=== PATIENT | female | born 1990 | race Caucasian/White ===

== ENCOUNTER 2024-08-06 08:45 | Emergency (ER) | payer OTHER, SELFPAY ==
--- OUTSIDE RECORDS SUMMARY | 2024-08-06 08:46 | XMS_ITS | Clinical Summary ---
Author Organization [employer] [facility] Address [place], [place] [address] Care Team Providers Care Senior Business Development Manager Name Role Phone Pcp, No Primary Care Provider Unavailabl e Allergies Active Allergy Reactions Criticality Noted Date Comments Peanut Anaphylaxis High 06/24/2015 Medications EPINEPHrine (EPIPEN) 0.3 mg/0.3 mL (1:1,000) injectionIndic ations:Anaphyl axis, initial encounter Inject 0.3 mg intramuscular one time if needed for Allergic Reaction for up to 1 dose. 2 Each 0 5 Active Social History Tobacco Use Types Packs/Day Years Used Date Smoking Tobacco: Never Assessed Comments Unknown Sex and Gender Information Value Date Recorded Sex Assigned at Not on file Legal Sex Female 1:38 PM BABY STROLLER RENTAL CLERK Gender Identity Not on file Sexual Orientation Not on file Last Filed Vital Signs Vital Sign Reading Time Taken Comments Blood Pressure 118/77 06/25/2015 1:16 AM BABY STROLLER RENTAL CLERK Pulse 69 06/25/2015 1:16 AM BABY STROLLER RENTAL CLERK Temperature 36.4 C (97.6 F) 06/24/2015 10:58 PM BABY STROLLER RENTAL CLERK Respiratory Rate 16 06/25/2015 1:16 AM BABY STROLLER RENTAL CLERK Oxygen Saturation 100% 06/25/2015 1:16 AM BABY STROLLER RENTAL CLERK Inhaled Oxygen Concentration - - Weight 59.9 kg (132 lb) 06/24/2015 10:58 PM BABY STROLLER RENTAL CLERK Height 165.1 cm (5' 5) 06/24/2015 10:58 PM BABY STROLLER RENTAL CLERK Body Mass Index 21.97 06/24/2015 10:58 PM BABY STROLLER RENTAL CLERK Plan of Treatment Not on file Insurance [facility] Care Teams Senior Business Development Manager Relationship Specialty Start Date End Date Pcp, No . PCP - General 06/24/15
--- OUTSIDE RECORDS SUMMARY | 2024-08-06 08:46 | XMS_ITS | Clinical Summary ---
Author Organization [facility] Address [address] [place] [address] Care Team Providers Care Perpetual Inventory Clerk Name Role Phone Asuncion Monteiro MD Primary Care Provider [phone] Source Comments You are receiving this document as you are listed as the primary care provider,follow-up provider, or the patient has been referred to you for consultation.This is in compliance with the Medicare andMedicaid EHR Incentive Program,which states Providers who transition their patient to another setting of careor provider of care or refers their patient to another provider of care shouldprovide summary care record for each transition of care or referral. [facility] Allergies No known active allergies Medications Medication Sig Dispensed Refills Start Date End Date Status Vit-Fe Fumarate-FA ( OR) Active promethazine (PHENERGAN) 25 MG tablet Take 1 Tab by mouth every 6 hours as needed for Nausea. 30 Tab 1 06/26/2016 Active Additional Information Patient not taking.Reported on 08/27/2016 Active Problems Patient Care Coordination No te Formatting of this note migh t be different from the original. First Tri. Screen Problem Noted Date Diagnosed Date Supervision of other normal , antepartu m 05/08/2016 Overview (05/08/2016): Hus: diana Medrano 1.5yo SEx: plan: possible WB Anxiety 05/08/2016 Immunizations Name Administration Dates Next Due Influenza IIV4 (Quadrivalent) 0.5mL (43360) 04/27 Family History Medical History Relation Name Comments High Cholesterol Father Depression Mother High Cholesterol Mother Hypertension Mother Thyroid Disorder Mother Cancer, Colon Maternal Grandfather Alzheimer's Maternal Grandmother Cancer Maternal Grandmother Cancer, Kidney Maternal Grandmother Heart Disease Maternal Grandmother A-fib Stroke Paternal Grandfather Relation Name Status Comments Father Alive Mother Alive Brother Alive Maternal Grandfather Maternal Grandmother Alive Paternal Grandfather Paternal Grandmother Alive Social History Tobacco Use Types Packs/Day Years Used Date Smoking Tobacco: Former Comments:Social smoker in 18 ' Alcohol Use Standard Drinks/Week Comments Yes 0 (1 standard drink = 0.6 oz pure alcohol) 3-4-per month but not while Sex and Gender Information Value Date Recorded Sex Assigned at Not on file Gender Identity Not on file Sexual Orientation Not on file Last Filed Vital Signs Vital Sign Reading Time Taken Comments Blood Pressure 108/60 08/27/2016 3:53 PM PATTERN CUTTER Pulse 98 05/08/2016 11:01 AM CDT Temperature - - Respiratory Rate - - Oxygen Saturation - - Inhaled Oxygen Concentration - - Weight 71.2 kg (156 lb 14.4 oz) 08/27/2016 3:53 PM PATTERN CUTTER Height 167 cm (5' 5.75) 05/08/2016 11: 01 AM CDT Body Mass Index 25.52 05/08/2016 11:01 AM CDT Plan of Treatment Health Maintenance Due Date Last Done Comments Adult Preventive Visit 2006 DTaP/Tdap/Td (1 - Tdap) 2007 HepB (1) 2007 Cervical Cancer Screening 05/08/2019 05/08/2016 COVID-19 Vaccine ( - 2023-2 5 season) 2024 Influenza (#1) 2024 05/08/2016 Zoster/Shingles (1 of 2) 2038 HIV Screening (Preventive Services) Completed 05/08/2016 Hep C Screening (Preventive Services) Completed 05/08/2016 HPV Vaccine Aged Out No longer eligi ble based on patient's age to complete this topic HepA Aged Out No longer eligi ble based on patient's age to complete this topic Hib Aged Out No longer eligi ble based on patient's age to complete this topic IPV (Polio) Aged Out No longer eligi ble based on patient's age to complete this topic MCV4 Aged Out No longer eligi ble based on patient's age to complete this topic Pneumococcal Aged Out No longer eligi ble based on patient's age to complete this topic Procedures Procedure Name Priority Date/Time Associated Diagnosis Comments ANATOMICAL PATH LIQUID BASED Routine 05/08/2016 1:24 PM CDT HIV-1 P24 AND HIV-1/HIV-2 ANTIBODIES Routine 05/08/2016 12:31 PM CDT Screening examination for venereal disease HEPATITIS C ANTIBODY, WITH REFLEX Routine 05/08/2016 12:31 PM CDT Special screening examination for viral disease from Last 3 Months or Most Recently Relevant to Health Maintenance Results * Pap Smear (05/08/2016 1:24 PM CDT) 05/08/2016 1:24 PM CDT Narrative JACK GAMBINO - 05/10/2016 8:37 AM CDT FINAL GYNECOLOGICAL CYTOLOGY REPORT Pathology #: [id number] Date Obtained: 05/08/2016 Date Received: 05/09/2016 INTERPRETATION/RESULTS: Negative for Intraepithelial Lesion or Malignancy. SPECIMEN ADEQUACY: Satisfactory for Evaluation. Endocervical cells/transformation zone component present. Verified on 05/10/2016 by TROY WOODRUFF(ASCP) (electronic signature) CLINICAL NOTES: Abnormal bleeding: No, LMP: 03/07/16, Menstrual status: , Current form of therapy: None apply LIQUID BASED PAP SMEAR SPECIMEN TYPE: ROUTINE CERVICAL PAP TEST PLEASE NOTE: The pap smear is a screening test designed to aid in the detection of cervical cancer and its precursor lesions. It is not a diagnostic procedure and should not be used as the sole means of detecting cervical cancer. Both false-positive and false-negative reports may occur. Performed at [facility], [facility] [place] [address] Tasha Smith APRN, CNM LAB_1 [facility] [address] [place] [address] * LAB HIV-1 p24 AND HIV-1/HIV-2 ANTIBODIES (05/08/2016 12:31 PM CDT) HIV-1 p24 Ag and HIV-1/HIV-2 Ab Nonreactive Nonreactive PN SOFT 05/08/2016 12:3 1 PM CDT 05/08/2016 7:05 PM CDT Narrative PN SOFT - 05/08/2016 7:52 PM CDT Performed at [facility], [address] [place] [address] CLIA number [id number] Tasha Smith APRN, CNM LAB_1 Performing Organization Address [facility] Co de Phone Number PN SOFT [address] [place] [address] * HEPATITIS C ANTIBODY, WITH REFLEX (05/08/2016 12:31 PM CDT) Hepatitis C Antibody Nonreactive Nonreactive PN SOFT 05/08/2016 12:3 1 PM CDT 05/08/2016 7:05 PM CDT Narrative PN SOFT - 05/08/2016 7:52 PM CDT Performed at [facility], [address] [place] [address] CLIA number [id number] Tasha Smith APRN, CNM LAB_1 Performing Organization Address [facility] Co de Phone Number PN SOFT [address] [place] [address] from Last 3 Months or Most Recently Relevant to Health Maintenance Care Teams Perpetual Inventory Clerk Relationship Specialty Start Date End Date Asuncion Monteiro MD [address] [place] [address] PCP - General 04/23/16
--- OUTSIDE RECORDS SUMMARY | 2024-08-06 08:46 | XMS_ITS | Encounter Summary ---
Author Organization [facility] Address [address] [place] [address] Care Team Providers Care Multilith Operator Name Role Phone Asuncion Monteiro MD Primary Care Provider [phone] Encounter Details Date Type Department Care Team (Late st Contact Info) Description 12/26/2021 Lab Requisition [place] [address] Dermatology [address] [place] [address] Colin Le PA-C [address] [place] [address] [address] [place], [place] [id number] Neoplasm of unspecified behavior of bone, soft tissue, and skin Social History Tobacco Use Types Packs/Day Years Used Date Smoking Tobacco: Former Comments:Social smoker in 18 's Alcohol Use Standard Drinks/Week Comments Yes 0 (1 standard drink = 0.6 oz pure alcohol) 3-4-per month but not while Sex and Gender Information Value Date Recorded Sex Assigned at Not on file Gender Identity Not on file Sexual Orientation Not on file documented as of this encounter Plan of Treatment Not on file documented as of this encounter Procedures Procedure Name Priority Date/Time Associated Diagnosis Comments SURGICAL PATHOLOGY, DERMATOLOGY Routine 12/25/2021 9:00 AM CDT Neoplasm of unspecified behavior of bone, soft tissue, and skin (HRC) documented in this encounter Results * Surgical Path, Dermatology (12/25/2021 9:00 AM CDT) Case Report Surgical Pathology Report Case: [id number] Authorizing Provider: Colin Le PA-C Collected: 12/25/2021 0900 Ordering Location: [place] [address] Received: 12/26/2021 1348 Dermatology Pathologist: Christian Lee MD Specimen: Skin shave, Breast left, lower 01/01/2022 12:31 PM T [facility] 3800 DERMATOLOGY FINAL DIAGNOSIS A. 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 01/01/2022 12:31 PM T [facility] 3800 DERMATOLOGY Clinical Information 6 mm skin-colored papule. Rule out atypia. 01/01/2022 12:31 PM T [facility] 3800 DERMATOLOGY Microscopic Description Microscopic examination is performed. 01/01/2022 12:31 PM T [facility] 3800 DERMATOLOGY Special Stains A portion of the technical [place] [address]. The professional interpretation was performed at [facility]. 01/01/2022 12:31 PM T [facility] 3800 DERMATOLOGY Gross Description A: Received in formalin, labeled with the patient's name and Skin shave, Breast left, lower is a 9 x 6 x 3 mm shave biopsy of skin. The specimen is marked with black ink, bisected, and submitted entirely in one cassette. CC 01/01/2022 12:31 PM T [facility] 3800 DERMATOLOGY Embedded Images 01/01/2022 12:31 PM T [facility] 3800 DERMATOLOGY Skin SHAVE BIOPSY OF SKIN / Unknown 12/25/2021 9:00 AM CDT 12/26/2021 1:48 PM CDT Colin Le PA-C LAB PATHOLOGY [facility] [address] documented in this encounter Visit Diagnoses Diagnosis Neoplasm of unspecified behavior of bone, soft tissue, and skin (HRC) documented in this encounter Care Teams Multilith Operator Relationship Specialty Start Date End Date Asuncion Monteiro MD [address] [place] [address] PCP - General 04/23/16 documented as of this encounter
--- OUTSIDE RECORDS SUMMARY | 2024-08-06 08:47 | XMS_ITS | Clinical Summary ---
Author Organization [facility] Address [address] [place] [address] Care Team Providers Care Chief Medical Director Name Role Phone Elsewhere, Pcp Primary Care Provider Unavailabl e Source Comments Patient records contain information from all sites at [facility]. For routine questions regarding patient records, call [phone] during business hours, M-F 8:00 AM - 5:00 PM Central Time. Record requests for emergency care only can be directed to [phone] at any time.[facility] Allergies No known active allergies Medications acetaminophen (TylenoL) 500 mg tablet Take 1,000 mg by mouth every 6 (six) hours as needed for pain or fever. Active ibuprofen 200 mg tablet Take 400 mg by mouth every 6 (six) hours as needed for pain or fever. Active benzonatate (Tessalon Perles) 100 mg capsule Take 1 capsule (100 mg total) by mouth 3 (three) times a day as needed for cough. 20 capsule 08/03/2024 Active predniSONE (Deltasone) 20 mg tablet Take 1 tablet (20 mg total) by mouth 2 (two) times a day for 5 days. 10 tablet 08/03/2024 5 Active Active Problems No known active problems Encounters Date Type Department Care Team Description 08/03/2024 11:35 AM SALES ASSISTANTS AND SALESPERSONS - 08/03/2024 12:46 PM [facility] Emergency [place] Emergency/Urgent Care Department [address] [place] [address] [phone] Monalisa Hand P.A.-C., P.A. Cough Acute (Primary Dx) Discharge Disposition: Home or Self Care from Last 3 Months Immunizations Name Administration Dates Next Due Tdap 06/03/2014 Social History Tobacco Use Types Packs/Day Years Used Date Smoking Tobacco: Never Dental Answer Date Recorded Dental: Regular Dentist Unknown 08/03/19 Comments No Sex and Gender Information Value Date Recorded Sex Assigned at Not on file Legal Sex Female 7:49 PM SALES ASSIST[employer]S AND SALESPERSONS Gender Identity Not on file Sexual Orientation Not on file Last Filed Vital Signs Vital Sign Reading Time Taken Comments Blood Pressure 119/80 08/03/2024 11:28 AM [employer] Pulse 116 08/03/2024 11:28 AM [employer] Temperature 39.4 C (102.9 F) 08/03/2024 11:28 AM [employer] Respiratory Rate 20 08/03/2024 11:2 8 AM [employer] Oxygen Saturation 100% 08/03/2024 11: 28 AM [employer] Inhaled Oxygen Concentration - - Weight 63.4 kg (139 lb 12.8 oz) 025 11:29 AM [employer]IST[employer]S [employer] SAL[employer] Height 167 cm (5' 5.75) 07/12/2015 9:26 AM [employer] Body Mass Index 22.74 07/12/2015 9:26 AM [employer] Plan of Treatment Health Maintenance Due Date Last Done Comments Cervical/Vaginal Cancer Screening 1988 HIV Screening 1988 Hepatitis C Screening 1988 Lipid (Cholesterol) Screening 1988 Hepatitis B Vaccines (1 of 3 - 19+ 3-dose series) 2007 COVID-19 Vaccine ( - 2023-2 5 season) 2024 Influenza Vaccine (#1) 2024 05/08/2016 DTaP,Tdap,and Td Vaccines (2 - Td or Tdap) 06/03/2024 06/03/2014 Depression Screening (Annual PHQ-2) 07/28/2024 HPV Vaccines Aged Out No longer eligi ble based on patient's age to complete this topic IPV Vaccines Aged Out No longer eligi ble based on patient's age to complete this topic Pneumococcal vaccine (0-49 years) Aged Out No longer eligible based on patient's age to complete this topic Procedures Procedure Name Priority Date/Time Associated Diagnosis Comments INFLUENZA A, B, RSV, PCR, POCT STAT 08/03/2024 11:41 AM [employer] SARS CORONAVIRUS 2, PCR RAPID, V STAT 08/03/2024 11:41 AM [employer] from Last 3 Months Results * SARS Coronavirus 2, PCR Rapid Symptomatic (08/03/2024 11:41 AM [employer]) SARS CoV-2, PCR, Rapid, V Undetected Undetected 08/03/2024 11:45 AM [employer] NPRG SARS Coronavirus 2, Source, Rapid Swab, Nasopharynx 08/03/2024 11:41 AM [employer] NPRG Swab (Nasopharynx) 08/03/2024 11:41 AM [employer] 08/03/2024 11:41 AM [employer] Monalisa GrayC., P.A. LAB MICROBIOLOGY - G ENERAL ORDERABLES Final Result Performing Organization Address City/[facility]/ZIP Co de Phone Number [facility] [address] [place] [address], [facility] NPRG [place] [phone] * Influenza A/B and RSV, PCR, Point of Care (08/03/2024 11:41 AM [employer]S [employer] SAL[employer]) Influenza A, POCT Negative Negative 08/03/2024 11:47 AM [employer] NPRG Influenza B, POCT Negative Negative 08/03/2024 11:47 AM [employer] NPRG Resp Syncytial Virus, POCT Negative Negative 08/03/2024 11:47 AM [employer] NPRG Swab (Nasopharynx) 08/03/2024 11:41 AM [employer] 08/03/2024 11:41 AM [employer] Monalisa Freeman.-C., P.A. LAB POCT ORDERABLES - DEVICE Final Result Performing Organization Address City/[facility]/ZIP Co de Phone Number [facility] [address] [place] [address], [facility] NPRG [address] [address] from Last 3 Months Insurance [employer] Care Teams Chief Medical Director Relationship Specialty Start Date End Date Elsewhere, Pcp PCP - General Family Medicine 06/01/18
--- OUTSIDE RECORDS SUMMARY | 2024-08-06 08:47 | XMS_ITS | Referral Summary ---
Author Organization [facility] Address [address] [place] [address] Care Team Providers Care Plasterer Apprentice Name Role Phone Elsewhere, Pcp Primary Care Provider Unavailabl e Source Comments Patient records contain information from all sites at [facility]. For routine questions regarding patient records, call [phone] during business hours, M-F 8:00 AM - 5:00 PM Central Time. Record requests for emergency care only can be directed to [phone] at any time.[facility] Encounters Date Type Department Care Team Description 08/03/2024 11:35 AM E COMMERCE ARCHITECT - 08/03/2024 12:46 PM [facility] Emergency [place] Emergency/Urgent Care Department [address] [place] [phone] Monalisa Hand P.A.-C., P.A. Cough Acute (Primary Dx) Discharge Disposition: Home or Self Care from Last 3 Months Allergies No known active allergies Medications acetaminophen [...] day for 5 days. 10 tablet 08/03/2024 Active Active Problems No known active problems Immunizations Name Administration Dates Next Due Tdap 06/03/2014 Social History Tobacco Use Types Packs/Day Years Used Date Smoking Tobacco: Never Dental Answer Date Recorded Dental: Regular Dentist Unknown 08/03/19 25 Comments No Sex and Gender Information Value Date Recorded Sex Assigned at Not on file Legal Sex Female 7:49 PM E COMMERCE ARCHITECT Gender Identity Not on file Sexual Orientation Not on file Last Filed Vital Signs Vital Sign Reading Time Taken Comments Blood Pressure 119/80 08/03/2024 11:28 AM E COMMERCE ARCHITECT Pulse 116 08/03/2024 11:28 AM E COMMERCE ARCHITECT Temperature 39.4 C (102.9 F) 08/03/2024 11:28 AM E COMMERCE ARCHITECT Respiratory Rate 20 08/03/2024 11:2 8 AM E COMMERCE ARCHITECT Oxygen Saturation 100% 08/03/2024 11: 28 AM E COMMERCE ARCHITECT Inhaled Oxygen Concentration - - Weight 63.4 kg (139 lb 12.8 oz) 025 11:29 AM E COMMERCE ARCHITECT Height 167 cm (5' 5.75) 07/12/2015 9:26 AM E COMMERCE ARCHITECT Body Mass Index 22.74 07/12/2015 9:26 AM E COMMERCE ARCHITECT Plan of Treatment Not on file Procedures Procedure Name Priority Date/Time Associated Diagnosis Comments INFLUENZA A, B, RSV, PCR, POCT STAT 08/03/2024 11:41 AM E COMMERCE ARCHITECT SARS CORONAVIRUS 2, PCR RAPID, V STAT 08/03/2024 11:41 AM E COMMERCE ARCHITECT from Last 3 Months Results * SARS Coronavirus 2, PCR Rapid Symptomatic (08/03/2024 11:41 AM E COMMERCE ARCHITECT) SARS CoV-2, PCR, Rapid, V Undetected Undetected 08/03/2024 11:45 AM E COMMERCE ARCHITECT NPRG SARS Coronavirus 2, Source, Rapid Swab, Nasopharynx 08/03/2024 11:41 AM E COMMERCE ARCHITECT NPRG Swab (Nasopharynx) 08/03/2024 11:41 AM E COMMERCE ARCHITECT 08/03/2024 11:41 AM E COMMERCE ARCHITECT us Monalisa Hand P.A.-C., P.A. LAB MICROBIOLOGY - G ENERAL ORDERABLES Final Result [facility] [address] [place] [address], [place] NPR[facility] [place] [address] [address] [place] [address] * Influenza A/B and RSV, PCR, Point of Care (08/03/2024 11:41 AM E COMMERCE ARCHITECT) Influenza A, POCT Negative Negative 08/03/2024 11:47 AM E COMMERCE ARCHITECT NPRG Influenza B, POCT Negative Negative 08/03/2024 11:47 AM E COMMERCE ARCHITECT NPRG Resp Syncytial Virus, POCT Negative Negative 08/03/2024 11:47 AM E COMMERCE ARCHITECT NPRG Swab (Nasopharynx) 08/03/2024 11:41 AM E COMMERCE ARCHITECT 08/03/2024 11:41 AM E COMMERCE ARCHITECT Monalisa Hand P.A.-C., P.A. LAB POCT ORDERABLES - DEVICE Final Result Performing Organization Address City/State/[facility] Co de Phone Number [facility] [address] [place] [address], [place] [address] [address] [place] [address] from Last 3 Months Insurance [employer] Care Teams Plasterer Apprentice Relationship Specialty Start Date End Date Elsewhere, Pcp PCP - General Family Medicine 06/01/18
--- OUTSIDE RECORDS SUMMARY | 2024-08-06 08:47 | XMS_ITS | Encounter Summary ---
Author Organization [facility] Address [address] [place] [address] Care Team Providers Care Director For Beauty [employer] Name Role Phone Elsewhere, Pcp Primary Care Provider Unavailabl e Reason for Visit * Reason Comments Fever Patient presents wit h fevers, cough and full body soreness that started Friday. Encounter Details Date Type Department Care Team ([facility] st Contact Info) Description 08/03/2024 11:35 AM OVEN HEATER HELPER - 08/03/2024 12:46 PM OVEN HEATER HELPER Emergency [place] [facility] [address] [place] [phone] Monalisa Hand P.A.-Samanta., P.A. [address] [place] [address] [phone] Cough Acute (Primary Dx) Discharge Disposition: Home or Self Care Social History Tobacco Use Types Packs/Day Years Used Date Smoking Tobacco: Never Dental Answer Date Recorded Dental: Regular Dentist Unknown 08/03/19 25 Comments No Sex and Gender Information Value Date Recorded Sex Assigned at Not on file Legal Sex Female 7:49 PM OVEN HEATER HELPER Gender Identity Not on file Sexual Orientation Not on file documented as of this encounter Last Filed Vital Signs Vital Sign Reading Time Taken Comments Blood Pressure 119/80 08/03/2024 11:28 AM OVEN HEATER HELPER Pulse 116 08/03/2024 11:28 AM OVEN HEATER HELPER Temperature 39.4 C (102.9 F) 08/03/2024 11:28 AM OVEN HEATER HELPER Respiratory Rate 20 08/03/2024 11:2 8 AM OVEN HEATER HELPER Oxygen Saturation 100% 08/03/2024 11: 28 AM OVEN HEATER HELPER Inhaled Oxygen Concentration - - Weight 63.4 kg (139 lb 12.8 oz) 025 11:29 AM OVEN HEATER HELPER Height - - Body Mass Index 22.74 07/12/2015 9:26 AM OVEN HEATER HELPER documented in this encounter Medications at Time of Discharge acetaminophen (TylenoL) 500 mg tablet Take 1,000 mg by mouth every 6 (six) hours as needed for pain or fever. ibuprofen 200 mg tablet Take 400 mg by mouth every 6 (six) hours as needed for pain or fever. benzonatate (Tessalon Perles) 100 mg capsule Take 1 capsule (100 mg total) by mouth 3 (three) times a day as needed for cough. 20 capsule 08/03/2024 predniSONE (Deltasone) 20 mg tablet Take 1 tablet (20 mg total) by mouth 2 (two) times a day for 5 days. 10 tablet 08/03/2024 08/08/2024 documented as of this encounter Progress Notes * Monalisa Hand P.A.-Samanta., P.A. - 08/03/2024 12:22 PM CST SUBJECTIVE CHIEF COMPLAINT / REASON FOR VISIT Fever (Patient presents with fevers, cough and full body soreness that started Friday. ) HISTORY OF PRESENT ILLNESS Ashley Salomon is a 34 y.o. female who presents for evaluation of symptoms cough and fever. Pt had onset of symptoms four days ago of fever ranging from 101-104 F. Has been using ibuprofen to help reduce fever. Non productive cough began three days ago. Having pain to back and chest when cough, frequent coughing, body aches, chills, sweats and fatigue. Her child was recently ill around dajuan time with similar symptoms. No other known exposures or ill contacts. No history of asthma or COPD. The patient's social and medical history was reviewed in the electronic medical record. ALLERGIES/CONTRAINDICATIONS No Known Allergies OBJECTIVE VITAL SIGNS BP 119/80 (BP Location: Left arm;Upper, Patient Position: Sitting) Pulse (!) 116 Temp (!) 39.4 ??C (Temporal) Resp 20 Wt 63.4 kg LMP 07/30/2024 SpO2 100% No BMI 22.74 kg/m?? PHYSICAL EXAMINATION General: Patient is alert and in no acute distress. HEENT: Pupils PERRLA. Conjunctivae clear without hemorrhages or exudates. Auditory canals normal without erythema or edema. TMs pearly you and intact without erythema. Oral cavity adequately hydrated. Posterior pharynx normal without erythema or drainage present. Neck: Supple without lymphadenopathy. Respiratory: effort is easy. Lung sounds are clear to auscultation. Cardiovascular: S1, S2 present. Normal rate and rhythm. Musculoskeletal: Grossly intact. No deformities noted. Skin: Normal color, temperature and moisture. No rashes or lesions noted. DIAGNOSTICS Labs: Recent Results (from the past 24 hours) SARS Coronavirus 2, PCR Rapid Symptomatic Collection Time: 08/03/24 11:41 AM Specimen: Nasopharynx; Swab Result Value SARS CoV-2, PCR, Rapid, V Undetected SARS Coronavirus 2, Source, Rapid Swab, Nasopharynx Influenza A/B and RSV, PCR, Point of Care Collection Time: 08/03/24 11:41 AM Result Value Influenza A, POCT Negative Influenza B, POCT Negative Resp Syncytial Virus, POCT Negative Imaging: No results found. Curb 65 ASSESSMENT / PLAN #1 Cough Acute Other orders - SARS Coronavirus 2, PCR Rapid Symptomatic; Standing - Influenza A/B and RSV, PCR, Point of Care; Standing - Droplet Isolation; Standing - SARS Coronavirus 2, PCR Rapid Symptomatic - Influenza A/B and RSV, PCR, Point of Care - Droplet Isolation - benzonatate (Tessalon Perles) 100 mg capsule; Take 1 capsule (100 mg total) by mouth 3 (three) times a day as needed for cough., Starting Fri08/03/2024, Normal - predniSONE (Deltasone) 20 mg tablet; Take 1 tablet (20 mg total) by mouth 2 (two) times a day for5 days., Starting Fri08/03/2024, Until 08/08/2024, Normal Lungs CTA on exam. Fever noted on exam today during visit, pulse also elevated. Remainder of vitals are WNL.Pt in no acute distress. Findings/history consistent with viral illness. Reviewed symptomatic care recommendations with patient. Advised that nasal swab test for COVID, RSV, influenza was negative during visit. Should refrain from close contact with others including work until fever free for 24 hours. OTC medications reviewed. Symptomatic care recommendations reviewed. Medications as prescribed above. Symptomatic treatments were discussed. Cover your cough. Wash hands frequently. Follow up if no improvement tin 3-4 days. Concerning symptoms to watch for were discussed. If new or concerning symptoms develop, seek medical attention. Patient verbalizes understanding and acceptance of this plan of care and denies any further needs or questions at this time. Monalisa Hand P.A.-C., P.A. Monalisa Hand P.A.-C., P.A. 08/03/24 1230 HEATER HELPER documented in this encounter Plan of Treatment Not on file documented as of this encounter Procedures Procedure Name Priority Date/Time Associated Diagnosis Comments SARS CORONAVIRUS 2, PCR RAPID, V STAT 08/03/2024 11:41 AM OVEN HEATER HELPER INFLUENZA A, B, RSV, PCR, POCT STAT 08/03/2024 11:41 AM OVEN HEATER HELPER documented in this encounter Results * Influenza A/B and RSV, PCR, Point of Care (08/03/2024 11:41 AM OVEN HEATER HELPER) Influenza A, POCT Negative Negative 08/03/2024 11:47 AM OVEN HEATER HELPER NPRG Influenza B, POCT Negative Negative 08/03/2024 11:47 AM OVEN HEATER HELPER NPRG Resp Syncytial Virus, POCT Negative Negative 08/03/2024 11:47 AM OVEN HEATER HELPER NPRG Swab (Nasopharynx) 08/03/2024 11:41 AM OVEN HEATER HELPER 08/03/2024 11:41 AM OVEN HEATER HELPER us Monalisa Hand P.A.-C., P.A. LAB POCT ORDERABLES - DEVICE Final Result [facility] [address] [place] [address], [facility] [address] [place] [address] * SARS Coronavirus 2, PCR Rapid Symptomatic (08/03/2024 11:41 AM OVEN HEATER HELPER) SARS CoV-2, PCR, Rapid, V Undetected Undetected 08/03/2024 11:45 AM OVEN HEATER HELPER NPRG SARS Coronavirus 2, Source, Rapid Swab, Nasopharynx 08/03/2024 11:41 AM OVEN HEATER HELPER NPRG Swab (Nasopharynx) 08/03/2024 11:41 AM OVEN HEATER HELPER 08/03/2024 11:41 AM OVEN HEATER HELPER us Monalisa Hand P.A.-C., P.A. LAB MICROBIOLOGY - G ENERAL ORDERABLES Final Result [facility] [address] [place] [address], [facility] NPRG [facility] [address] [place] [address] documented in this encounter Visit Diagnoses Diagnosis Cough Acute- Primary documented in this encounter Additional Health Concerns Infection Onset Date Last Indicated Resolved Time COVID19 Pending 08/03/2024 08/03/2024 08/03/2024 1 2:07 PM OVEN HEATER HELPER Assessment Noted Time PHQ-9 Depression Total Score: 7 06/29/20 15 11:23 AM OVEN HEATER HELPER documented as of this encounter Care Teams Director For Beauty [employer] Relationship Specialty Start Date End Date Elsewhere, Pcp PCP - General Family Medicine 06/01/18 documented as of this encounter
--- OUTSIDE RECORDS SUMMARY | 2024-08-06 08:47 | XMS_ITS ---
Author Organization [facility] Address [address] [place] [address] Care Team Providers Care Shuttle Filler Name Role Phone Unavailable Unavailable Unavailable Surgery Details Not on file Complications Check Surgery Details section. Procedure Estimated Blood Loss Check Surgery Details section. Procedure Findings Check Surgery Details section. Procedure Specimens Taken Check Surgery Details section.
[2024-08-06 08:55] VITALS: BP 132/80; PULSE 116; RESP 24; TEMP 38.8; O2SAT 95; BMI 23.1
--- NOTE | 2024-08-06 09:09 | CRLHL7_ITS ---
For Patients: As a result of the Century Cures Act, medical imaging exams and procedure reports are released immediately into your electronic medical record. You may view this report before your referring provider. If you have questions, please contact your health care provider. INDICATION: Shortness of breath TECHNIQUE: Chest 2 views. COMPARISON: None. FINDINGS: Cardiovascular and mediastinum: Heart size is normal. Unremarkable mediastinum. Lungs and pleural spaces: Left lower lobe consolidation. No pneumothorax or pleural effusion. Bones and soft tissues: No significant findings. IMPRESSION: Left lower lobe consolidation, likely pneumonia. Dictated by Jody Villalobos MD @ 08/06/2024 10:09:15 AM (Electronically Signed)
--- NOTE | 2024-08-06 09:10 | ED_ITS ---
HPI - General Adult General Chief complaint: Shortness of Breath/Dyspnea Stated complaint: Respiratory Issues Time Seen by Provider: 08/06/24 08:50 History of Present Illness HPI narrative: Patient is a 34-year-old woman who comes in today with several days of cough congestion fever and malaise. She was seen in urgent care and had negative COVID influenza and RSV swab. Her cough is nonproductive she has a general malaise body aches. She has not been eating or drinking but has no abdominal pain no rashes no stiff neck no dysuria. Related Data Allergies Allergy/AdvReac Type Severity Reaction Status Date / Time tree nut Allergy Verified 08/06/24 08:54 Review of Systems Status of ROS: Reports: 10 or more systems reviewed and unremarkable except as noted in History and below PFSH [facility] Social History Smoking Status: Never smoker Do you use any of these nicotine containing products: None How often do you have a drink containing alcohol: monthly or less How often do you have six or more drinks on one occasion: Never AUDIT-C Alcohol total score: 1 Non-prescribed substance use: denies use Exam Narrative: Exam Narrative: EXAM GENERAL: Patient appears comfortable and well. EYES: No scleral icterus. LYMPH: No supraclavicular or cervical lymphadenopathy. SKIN: Visible skin seen during exam normal or with benign process only. EXT: No dependent lower extremity pedal edema. HEART: Regular rate and rhythm with no murmurs, rubs, or gallops. LUNGS: Mild rhonchi bilaterally. ABD: Soft, non tender, non distended. PSYCH: Good eye contact, speech is not pressured. Const: Vital Signs, click to edit/add: Vital Signs - 24 hr 08/06/24 08:55 Temperature 101.8 F H Pulse Rate [Pulse Oximeter] 116 H Respiratory Rate 24 Blood Pressure [Ri ght Upper Arm] 132/80 Pulse Oximetry 95 Oxygen Delivery Me thod Room Air Course Course ED Course: Patient seen and examined. Blood cultures collected lactate CBC comprehensive metabolic panel chest x-ray a viral swab. Vital Signs Vital signs: Initial Vital Signs Respiratory Effort Normal, Spontaneous, Non-Labored 08/06/24 08:48 Respiratory Depth Normal 08/06/24 08:48 Respiratory Pattern Normal 08/06/24 08:48 Vital Signs Temperature 101.8 F H 08/06/24 08:55 Pulse Rate 116 H 08/06/24 08:55 Respiratory Rate 24 08/06/24 08:55 Blood Pressure 132/80 08/06/24 08:55 Pulse Oximetry 95 08/06/24 08:55 Oxygen Delivery Method Room Air 08/06/24 08:55 Temperature 101.8 F H 08/06/24 08:55 Pulse Rate 116 H 08/06/24 08:55 Respiratory Rate 24 08/06/24 08:55 Blood Pressure 132/80 08/06/24 08:55 Pulse Oximetry 95 08/06/24 08:55 Oxygen Delivery Method Room Air 08/06/24 08:55 Medications Administered Medications: Generic Name Dose Route Start Last Admin Trade Name Freq PRN Reason Stop Dose Admin Sodium Chloride 1,000 mls @ 1,000 mls/hr 08/06/24 09:47 08/06/24 10:00 0.9 % Sodium Chloride 1000 Ml IV 08/06/24 10:46 1,000 mls/hr .Q1H NELDA Administration Discontinued Medications Generic Name Dose Route Start Last Admin Trade Name Freq PRN Reason Stop Dose Admin Acetaminophen 1,000 mg 08/06/24 09:46 08/06/24 09:54 Acetaminophen 500 Mg Tablet PO 08/06/24 09:47 1,000 mg ONCE ONE Administration Medical Decision Making MDM Narrative Medical decision making narrative: Patient is a reasonably healthy 34-year-old woman comes in today with fever cough and tachycardia. She has a lactate of 2.4. I did give her L of normal saline as well as 1 g of Tylenol. Workup was unremarkable otherwise with the exception of left lower lobe pneumonia on chest x-ray. At this time she has tested negative for COVID influenza and RSV previously. We will treat her as a community-acquired pneumonia with Augmentin plus Zithromax. I did arrange follow-up with me in the office. She can advance her diet activity as tolerated. Lab Data Labs: Lab Results 08/06/24 Range/Units 09:16 WBC 5.91 (4.50-11.00) K/uL RBC 3.82 L (4.00-5.20) m/uL Hgb 12.1 (12.0-16.0) gm/dL Hct 36.0 (33.0-51.0) % MCV 94 (80-100) fL MCH 32 (26-34) pg MCHC 34 (32-36) gm/dL RDW Coeff of Bianca 11.8 (11.5-15.5) % Plt Count 244 (140-440) K/uL Neut % (Auto) 78.5 H (42.0-72.0) % Lymph % (Auto) 11.2 L (20-44) % [place] % (Auto) 9.3 (0.0-11.0) % Eos % (Auto) 0.5 (0.0-7.0) % Baso % (Auto) 0.3 (0.0-3.0) % Neut # (Auto) 4.60 (1.7-7.0) K/uL Lymph # (Auto) 0.70 L (0.90-2.90) K/uL [place] # (Auto) 0.50 (0.00-0.90) K/UL Eos # (Auto) 0.03 (0.00-0.50) K/uL Baso # (Auto) 0.02 (0.00-0.30) K/uL Abs Immat Gran (auto) 0.01 (0.00-0.30) K/uL Imm/Tot Granulo (auto) 0.2 % Sodium 134 L (135-149) mmol/L Potassium 4.3 (3.6-5.1) mmol/L Chloride 98 (96-114) mmol/L Carbon Dioxide 29 (20-32) mmol/L Anion Gap 7 (7-15) mEq/L BUN 7 (5-24) mg/dL Creatinine 0.5 (0.5-1.5) mg/dL Estimated Creat Clear 139.97 Estimated GFR 125 ml/min Glucose 112 (60-115) mg/dL Lactate 2.4 H (0.5-1.9) mmol/L Calcium 8.9 (8.4-10.6) mg/dL Total Bilirubin 0.3 (0.1-1.5) mg/dL AST 22 (12-35) U/L ALT 17 (4-35) U/L Alkaline Phosphatase 50 (40-150) U/L Total Protein 6.9 (6.0-8.3) g/dL Albumin 3.9 (3.3-5.0) g/dL Discharge Plan Discharge Clinical Impression: Community acquired pneumonia Patient Disposition: Home, Self-Care Instructions: Community Acquired Pneumonia (ED) Additional Instructions: Augmentin as directed Zithromax as directed Follow-up with Dr. Garcia in the next week. Activity Level: No Restrictions Discharge Diet: Regular Follow Up/Referrals: Provider,Not a Local [Primary Care Provider] - Stand Alone Forms: [facility]DI Bassline Info Instructions
[2024-08-06 09:24] LABS: Basophils Absolute Auto 0.02 K/uL (0.00-0.30); Basophils Percent Auto 0.3 % (0.0-3.0); Eosinophils Absolute Auto 0.03 K/uL (0.00-0.50); Eosinophils Percent Auto 0.5 % (0.0-7.0); Hemoglobin* 12.1 gm/dL (12.0-16.0); Immature Granulocytes Abs Auto 0.01 K/uL (0.00-0.30); Immature Granulocytes Pct Auto 0.2 %; Lymphocytes Percent Auto 11.2 % (20-44); Mean Corpuscular HGB Conc 34 gm/dL (32-36); Mean Corpuscular Hemoglobin 32 pg (26-34); Mean Corpuscular Volume 94 fL (80-100); Monocytes Percent Auto 9.3 % (0.0-11.0); Neutrophils Percent Auto 78.5 % (42.0-72.0); Platelet Count* 244 K/uL (140-440); RDW Coefficient of Variation % 11.8 % (11.5-15.5); Red Blood Count 3.82 m/uL (4.00-5.20); White Blood Count* 5.91 K/uL (4.50-11.00)
[2024-08-06 09:37] LABS: Lactate* 2.4 mmol/L (0.5-1.9)
--- OUTSIDE RECORDS SUMMARY | 2024-08-06 09:51 | XMS_ITS ---
Author Organization [facility] Address [address] [place] [address] Care Team Providers Care Director Public Policy Name Role Phone Unavailable Unavailable Unavailable Surgery Details Not on file Complications Check Surgery Details section. Procedure Estimated Blood Loss Check Surgery Details section. Procedure Findings Check Surgery Details section. Procedure Specimens Taken Check Surgery Details section.
--- OUTSIDE RECORDS SUMMARY | 2024-08-06 09:51 | XMS_ITS | Clinical Summary ---
[facility] Organization [facility] Address [address] [place] [address] Care Team Providers Care Early Childhood Worker Name Role Phone Asuncion Monteiro MD Primary Care Provider [phone] Source Comments You are receiving this document [...] for each transition of care or referral. [facility] Allergies No known active allergies Medications Medication [...] Dates Next Due Influenza IIV4 (Quadrivalent) 0.5mL (23867) 04/27 Family History Medical History Relation Name [...] Comments Blood Pressure 108/60 08/27/2016 3:53 PM LIQUID YEAST SUPERVISOR Pulse 98 05/08/2016 11:01 AM CDT Temperature - - Respiratory Rate - - Oxygen Saturation - - Inhaled Oxygen Concentration - - Weight 71.2 kg (156 lb 14.4 oz) 08/27/2016 3:53 PM LIQUID YEAST SUPERVISOR Height 167 cm (5' 5.75) 05/08/2016 11: [...] CDT FINAL GYNECOLOGICAL CYTOLOGY REPORT Pathology #: [id number] Date Obtained: 05/08/2016 Date Received: 05/09/2016 INTERPRETATION/RESULTS: [...] and false-negative reports may occur. Performed at [facility], [facility] [place] [address] Tasha Smith APRN, CNM LAB_1 [facility] [address] [place] [address] * LAB HIV-1 p24 AND HIV-1/HIV-2 ANTIBODIES (05/08/2016 12:31 PM CDT) HIV-1 p24 Ag and HIV-1/HIV-2 Ab Nonreactive Nonreactive PN SOFT 05/08/2016 12:3 1 PM CDT 05/08/2016 7:05 PM CDT Narrative PN SOFT - 05/08/2016 7:52 PM CDT Performed at [facility], [address] [place] [address] CLIA number [id number] Tasha Smith APRN, CNM LAB_1 Performing Organization Address [facility] Co de Phone Number PN SOFT [address] [place] [address] * HEPATITIS C ANTIBODY, WITH REFLEX (05/08/2016 12:31 PM CDT) Hepatitis C Antibody Nonreactive Nonreactive PN SOFT 05/08/2016 12:3 1 PM CDT 05/08/2016 7:05 PM CDT Narrative PN SOFT - 05/08/2016 7:52 PM CDT Performed at [facility], [address] [place] [id number] CLIA number [id number] Tasha Smith APRN, CNM LAB_1 Performing Organization Address [facility] Co de Phone Number PN SOFT [address] [place] [address] from Last 3 Months or Most Recently Relevant to Health Maintenance Care Teams Early Childhood Worker Relationship Specialty Start Date End Date Asuncion Monteiro MD [address] [place] [address] PCP - General 04/23/16
--- OUTSIDE RECORDS SUMMARY | 2024-08-06 09:51 | XMS_ITS | Clinical Summary ---
Author Organization [facility] Address [address] [place] [address] Care Team Providers Care Student Services Representative Name Role Phone Elsewhere, Pcp Primary Care Provider Unavailabl e Source Comments Patient records contain information from all sites at [facility]. For routine questions regarding patient records, call [phone] during business hours, M-F 8:00 AM - 5:00 PM Central Time. Record requests for emergency care only can be directed to [phone] at any time.[facility] Allergies No known active allergies Medications acetaminophen [...] Department Care Team Description 08/03/2024 11:35 AM LANDFILL GAS TECHNICIAN - 08/03/2024 12:46 PM [facility] Emergency [place] [facility] Department [address] [place] [address] [phone] Monalisa Hand P.A.-C., P.A. Cough Acute (Primary [...] on file Legal Sex Female 7:49 PM LANDFILL GAS TECHNICIAN Gender Identity Not on file Sexual Orientation Not on file Last Filed Vital Signs Vital Sign Reading Time Taken Comments Blood Pressure 119/80 08/03/2024 11:28 AM LANDFILL GAS TECHNICIAN Pulse 116 08/03/2024 11:28 AM LANDFILL GAS TECHNICIAN Temperature 39.4 C (102.9 F) 08/03/2024 11:28 AM LANDFILL GAS TECHNICIAN Respiratory Rate 20 08/03/2024 11:2 8 AM LANDFILL GAS TECHNICIAN Oxygen Saturation 100% 08/03/2024 11: 28 AM LANDFILL GAS TECHNICIAN Inhaled Oxygen Concentration - - Weight 63.4 kg (139 lb 12.8 oz) 025 11:29 AM LANDFILL GAS TECHNICIAN Height 167 cm (5' 5.75) 07/12/2015 9:26 AM LANDFILL GAS TECHNICIAN Body Mass Index 22.74 07/12/2015 9:26 AM LANDFILL GAS TECHNICIAN Plan of Treatment Health Maintenance Due Date [...] RSV, PCR, POCT STAT 08/03/2024 11:41 AM LANDFILL GAS TECHNICIAN SARS CORONAVIRUS 2, PCR RAPID, V STAT 08/03/2024 11:41 AM LANDFILL GAS TECHNICIAN from Last 3 Months Results * SARS Coronavirus 2, PCR Rapid Symptomatic (08/03/2024 11:41 AM LANDFILL GAS TECHNICIAN) SARS CoV-2, PCR, Rapid, V Undetected Undetected 08/03/2024 11:45 AM LANDFILL GAS TECHNICIAN NPRG SARS Coronavirus 2, Source, Rapid Swab, Nasopharynx 08/03/2024 11:41 AM LANDFILL GAS TECHNICIAN NPRG Swab (Nasopharynx) 08/03/2024 11:41 AM LANDFILL GAS TECHNICIAN 08/03/2024 11:41 AM LANDFILL GAS TECHNICIAN Monalisa GrayC., P.A. LAB MICROBIOLOGY - G ENERAL ORDERABLES Final Result Performing Organization Address City/[facility]/ZIP Co de Phone Number [facility] [address] [place] [id number], [facility] NPRG [place] [id number] * Influenza A/B and RSV, PCR, Point of Care (08/03/2024 11:41 AM LANDFILL GAS TECHNICIAN) Influenza A, POCT Negative Negative 08/03/2024 11:47 AM LANDFILL GAS TECHNICIAN NPRG Influenza B, POCT Negative Negative 08/03/2024 11:47 AM LANDFILL GAS TECHNICIAN NPRG Resp Syncytial Virus, POCT Negative Negative 08/03/2024 11:47 AM LANDFILL GAS TECHNICIAN NPRG Swab (Nasopharynx) 08/03/2024 11:41 AM LANDFILL GAS TECHNICIAN 08/03/2024 11:41 AM LANDFILL GAS TECHNICIAN Monalisa Freeman.-C., P.A. LAB POCT ORDERABLES - DEVICE Final Result Performing Organization Address City/[facility]/ZIP Co de Phone Number [facility] [address] [place] [address], [facility] NPRG [address] [address] from Last 3 Months Insurance MEDICA Care Teams Student Services Representative Relationship Specialty Start Date End Date Elsewhere, Pcp PCP - General Family Medicine 06/01/18
--- OUTSIDE RECORDS SUMMARY | 2024-08-06 09:51 | XMS_ITS | Encounter Summary ---
Author Organization [facility] Address [address] [place] [address] Care Team Providers Care Respiratory Care Program Director Name Role Phone Asuncion Monteiro MD Primary Care Provider [phone] Encounter Details Date Type Department Care Team (Late st Contact Info) Description 12/26/2021 Lab Requisition [place] [address] Dermatology [address] [place] [address] Colin Le PA-C [address] [place] [address] [address] [place], [place] [phone] Neoplasm of unspecified behavior of bone, soft [...] CDT) Case Report Surgical Pathology Report Case: [id number] Authorizing Provider: Colin Le PA-C Collected: 12/25/2021 0900 Ordering Location: [place] [address] Received: 12/26/2021 1348 Dermatology Pathologist: Christian Lee MD Specimen: Skin shave, Breast left, lower 01/01/2022 12:31 PM T [facility] 3800 DERMATOLOGY FINAL DIAGNOSIS A. 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 01/01/2022 12:31 PM T [facility] 3800 DERMATOLOGY Clinical Information 6 mm skin-colored papule. Rule out atypia. 01/01/2022 12:31 PM T [facility] 3800 DERMATOLOGY Microscopic Description Microscopic examination is performed. 01/01/2022 12:31 PM T [facility] 3800 DERMATOLOGY Special Stains A portion of the technical staining [place] [address]. The professional interpretation was performed at [facility]. 01/01/2022 12:31 PM T [facility] 3800 DERMATOLOGY Gross Description A: Received in formalin, labeled with the patient's name and Skin shave, Breast left, lower is a 9 x 6 x 3 mm shave biopsy of skin. The specimen is marked with black ink, bisected, and submitted entirely in one cassette. CC 01/01/2022 12:31 PM T [facility] 3800 DERMATOLOGY Embedded Images 01/01/2022 12:31 PM T [facility] 3800 DERMATOLOGY Skin SHAVE BIOPSY OF SKIN / Unknown 12/25/2021 9:00 AM CDT 12/26/2021 1:48 PM CDT Colin Le PA-C LAB PATHOLOGY [facility] [address] documented in this encounter Visit Diagnoses Diagnosis Neoplasm of unspecified behavior of bone, soft tissue, and skin ([facility]) documented in this encounter Care Teams Respiratory Care Program Director Relationship Specialty Start Date End Date Asuncion Monteiro MD [address] [place] [address] PCP - General 04/23/16 documented as of this encounter
--- OUTSIDE RECORDS SUMMARY | 2024-08-06 09:51 | XMS_ITS | Referral Summary ---
Author Organization [facility] Address [address] [place] [address] Care Team Providers Care Sewage Reticulation Drafting Officer Name Role Phone Elsewhere, Pcp Primary Care Provider Unavailabl e Source Comments Patient records contain information from all sites at [facility]. For routine questions regarding patient records, call [phone] during business hours, M-F 8:00 AM - 5:00 PM Central Time. Record requests for emergency care only can be directed to [phone] at any time.[facility] Encounters Date Type Department Care Team Description 08/03/2024 11:35 AM PATHOLOGY LAB TECHNICIAN - 08/03/2024 12:46 PM [facility] Emergency [place] [facility] Department [address] [place] [phone] Monalisa Hand P.A.-C., P.A. Cough Acute (Primary [...] on file Legal Sex Female 7:49 PM PATHOLOGY LAB TECHNICIAN Gender Identity Not on file Sexual Orientation Not on file Last Filed Vital Signs Vital Sign Reading Time Taken Comments Blood Pressure 119/80 08/03/2024 11:28 AM PATHOLOGY LAB TECHNICIAN Pulse 116 08/03/2024 11:28 AM PATHOLOGY LAB TECHNICIAN Temperature 39.4 C (102.9 F) 08/03/2024 11:28 AM PATHOLOGY LAB TECHNICIAN Respiratory Rate 20 08/03/2024 11:2 8 AM PATHOLOGY LAB TECHNICIAN Oxygen Saturation 100% 08/03/2024 11: 28 AM PATHOLOGY LAB TECHNICIAN Inhaled Oxygen Concentration - - Weight 63.4 kg (139 lb 12.8 oz) 025 11:29 AM PATHOLOGY LAB TECHNICIAN Height 167 cm (5' 5.75) 07/12/2015 9:26 AM PATHOLOGY LAB TECHNICIAN Body Mass Index 22.74 07/12/2015 9:26 AM PATHOLOGY LAB TECHNICIAN Plan of Treatment Not on file Procedures Procedure Name Priority Date/Time Associated Diagnosis Comments INFLUENZA A, B, RSV, PCR, POCT STAT 08/03/2024 11:41 AM PATHOLOGY LAB TECHNICIAN SARS CORONAVIRUS 2, PCR RAPID, V STAT 08/03/2024 11:41 AM PATHOLOGY LAB TECHNICIAN from Last 3 Months Results * SARS Coronavirus 2, PCR Rapid Symptomatic (08/03/2024 11:41 AM PATHOLOGY LAB TECHNICIAN) SARS CoV-2, PCR, Rapid, V Undetected Undetected 08/03/2024 11:45 AM PATHOLOGY LAB TECHNICIAN NPRG SARS Coronavirus 2, Source, Rapid Swab, Nasopharynx 08/03/2024 11:41 AM PATHOLOGY LAB TECHNICIAN NPRG Swab (Nasopharynx) 08/03/2024 11:41 AM PATHOLOGY LAB TECHNICIAN 08/03/2024 11:41 AM PATHOLOGY LAB TECHNICIAN us Monalisa Hand P.A.-C., P.A. LAB MICROBIOLOGY - G ENERAL ORDERABLES Final Result [facility] [address] [place] [address], [facility] NPRG [place] [address] [address] [place] [address] * Influenza A/B and RSV, PCR, Point of Care (08/03/2024 11:41 AM PATHOLOGY LAB TECHNICIAN) Influenza A, POCT Negative Negative 08/03/2024 11:47 AM PATHOLOGY LAB TECHNICIAN NPRG Influenza B, POCT Negative Negative 08/03/2024 11:47 AM PATHOLOGY LAB TECHNICIAN NPRG Resp Syncytial Virus, POCT Negative Negative 08/03/2024 11:47 AM PATHOLOGY LAB TECHNICIAN NPRG Swab (Nasopharynx) 08/03/2024 11:41 AM PATHOLOGY LAB TECHNICIAN 08/03/2024 11:41 AM PATHOLOGY LAB TECHNICIAN Monalisa Hand P.A.-C., P.A. LAB POCT ORDERABLES - DEVICE Final Result Performing Organization Address City/State/[facility] Co de Phone Number [facility] [address] [place] [address], [facility] [place] [address] [place] [address] from Last 3 Months Insurance [employer] Care Teams Sewage Reticulation Drafting Officer Relationship Specialty Start Date End Date Elsewhere, Pcp PCP - General Family Medicine 06/01/18
--- OUTSIDE RECORDS SUMMARY | 2024-08-06 09:52 | XMS_ITS | Encounter Summary ---
Author Organization [facility] Address [address] [place] [address] Care Team Providers Care Rn Compliance Name Role Phone Elsewhere, Pcp Primary Care Provider Unavailabl e Reason for Visit * Reason Comments Fever Patient presents wit h fevers, cough and full body soreness that started Friday. Encounter Details Date Type Department Care Team ([facility] st Contact Info) Description 08/03/2024 11:35 AM RULING TECHNICIAN - 08/03/2024 12:46 PM RULING TECHNICIAN Emergency [place] Emergency/Urgent Care Department [address] [place] [phone] Monalisa Hand P.A.-Samanta., P.A. [address] [place] [address] [phone] Cough Acute (Primary Dx) Discharge Disposition: Home or Self Care Social History Tobacco Use Types Packs/Day Years Used Date Smoking Tobacco: Never Dental Answer Date Recorded Dental: Regular Dentist Unknown 08/03/19 25 Comments No Sex and Gender Information Value Date Recorded Sex Assigned at Not on file Legal Sex Female 7:49 PM RULING TECHNICIAN Gender Identity Not on file Sexual Orientation Not on file documented as of this encounter Last Filed Vital Signs Vital Sign Reading Time Taken Comments Blood Pressure 119/80 08/03/2024 11:28 AM RULING TECHNICIAN Pulse 116 08/03/2024 11:28 AM RULING TECHNICIAN Temperature 39.4 C (102.9 F) 08/03/2024 11:28 AM RULING TECHNICIAN Respiratory Rate 20 08/03/2024 11:2 8 AM RULING TECHNICIAN Oxygen Saturation 100% 08/03/2024 11: 28 AM RULING TECHNICIAN Inhaled Oxygen Concentration - - Weight 63.4 kg (139 lb 12.8 oz) 025 11:29 AM RULING TECHNICIAN Height - - Body Mass Index 22.74 07/12/2015 9:26 AM RULING TECHNICIAN documented in this encounter Medications at Time [...] P.A. Monalisa Hand P.A.-C., P.A. 08/03/24 1230 NG TECHNICIAN documented in this encounter Plan of Treatment Not on file documented as of this encounter Procedures Procedure Name Priority Date/Time Associated Diagnosis Comments SARS CORONAVIRUS 2, PCR RAPID, V STAT 08/03/2024 11:41 AM RULING TECHNICIAN INFLUENZA A, B, RSV, PCR, POCT STAT 08/03/2024 11:41 AM RULING TECHNICIAN documented in this encounter Results * Influenza A/B and RSV, PCR, Point of Care (08/03/2024 11:41 AM RULING TECHNICIAN) Influenza A, POCT Negative Negative 08/03/2024 11:47 AM RULING TECHNICIAN NPRG Influenza B, POCT Negative Negative 08/03/2024 11:47 AM RULING TECHNICIAN NPRG Resp Syncytial Virus, POCT Negative Negative 08/03/2024 11:47 AM RULING TECHNICIAN NPRG Swab (Nasopharynx) 08/03/2024 11:41 AM RULING TECHNICIAN 08/03/2024 11:41 AM RULING TECHNICIAN us Monalisa Hand P.A.-C., P.A. LAB POCT ORDERABLES - DEVICE Final Result [facility] [address] [place] [address], [facility] [address] [place] [address] * SARS Coronavirus 2, PCR Rapid Symptomatic (08/03/2024 11:41 AM RULING TECHNICIAN) SARS CoV-2, PCR, Rapid, V Undetected Undetected 08/03/2024 11:45 AM RULING TECHNICIAN NPRG SARS Coronavirus 2, Source, Rapid Swab, Nasopharynx 08/03/2024 11:41 AM RULING TECHNICIAN NPRG Swab (Nasopharynx) 08/03/2024 11:41 AM RULING TECHNICIAN 08/03/2024 11:41 AM RULING TECHNICIAN us Monalisa Hand P.A.-C., P.A. LAB MICROBIOLOGY - G ENERAL ORDERABLES Final Result [facility] [address] [place] [address], [facility] NPRG [facility] [address] [place] [address] documented in this encounter Visit Diagnoses Diagnosis Cough Acute- Primary documented in this encounter Additional Health Concerns Infection Onset Date Last Indicated Resolved Time COVID19 Pending 08/03/2024 08/03/2024 08/03/2024 1 2:07 PM RULING TECHNICIAN Assessment Noted Time PHQ-9 Depression Total Score: 7 06/29/20 15 11:23 AM RULING TECHNICIAN documented as of this encounter Care Teams Rn Compliance Relationship Specialty Start Date End Date Elsewhere, Pcp PCP - General Family Medicine 06/01/18 documented as of this encounter
[2024-08-06 09:53] LABS: Albumin* 3.9 g/dL (3.3-5.0); Chloride* 98 mmol/L (96-114); Potassium* 4.3 mmol/L (3.6-5.1); Sodium* 134 mmol/L (135-149)
[2024-08-06] MEDS: ACETAMINOPHEN 500 MG TABLET 1000 MG PO (09:54)
[2024-08-06 09:55] LABS: Creatinine* 0.5 mg/dL (0.5-1.5); Est. Creatinine Clearance* 139.97; Estimated Glomerular Filt Rate 125 ml/min
[2024-08-06 09:56] LABS: Alanine Aminotransferase* 17 U/L (4-35); Alkaline Phosphatase* 50 U/L (40-150); Anion Gap 7 mEq/L (7-15); Aspartate Amino Transferase* 22 U/L (12-35); Bilirubin Total* 0.3 mg/dL (0.1-1.5); Blood Urea Nitrogen* 7 mg/dL (5-24); Carbon Dioxide* 29 mmol/L (20-32); Glucose* 112 mg/dL (60-115); Total Protein* 6.9 g/dL (6.0-8.3)
[2024-08-06 09:57] LABS: Calcium* 8.9 mg/dL (8.4-10.6)
[2024-08-06] MEDS: 0.9 % SODIUM CHLORIDE 1000 ml 1,000 ML IV (10:00)
[2024-08-06 10:04] LABS: Slide Review Reflex No
[2024-08-06 10:43] LABS: PCR FLU A Negative PCR FLU A (Negative); PCR FLU B Negative PCR FLU B (Negative); PCR RSV Negative PCR RSV (Negative); SARS PCR* Negative SARS-CoV-2 (Negative)
[2024-08-06 11:12] VITALS: BP 118/72; RESP 18; O2SAT 95
== END 2024-08-06 11:16 | disposition home or self-care (01) ==
PROVIDERS: Emergency Provider Internal Medicine
DX: J18.9 Pneumonia, unspecified organism (principal)
CPT/HCPCS: 36415; 71046; 80053; 83605; 85025; 87040; 87631; 96360; 99283; 99284; A9270; J7030

== ENCOUNTER 2024-08-25 10:28 | Outpatient (CLI) | payer OTHER, SELFPAY | END 2024-08-25 10:29 | disposition home or self-care (01) | LOC: NFLDUCREF 10:29 | PROVIDERS: Visit Provider Nurse Practitioner | DX: R07.1 Chest pain on breathing (principal) | CPT/HCPCS: 85379 ==